=== PATIENT | male | born 1935 ===

== ENCOUNTER → 2022-08-02 13:03 | Outpatient (BNVA) | payer MEDICARE, SELFPAY | PROVIDERS: Visit Provider Internal Medicine | DX: M25.512 Pain in left shoulder (principal); I69.398 Other sequelae of cerebral infarction | CPT/HCPCS: 99202 ==

== ENCOUNTER 2022-10-06 09:23 | Day surgery (SDC) | payer MEDICARE, SELFPAY ==
[2022-10-06 08:23] VITALS: BMI 27.1
[2022-10-06 10:13] VITALS: BP 160/78; PULSE 76; RESP 18; TEMP 36.8; O2SAT 97
--- NOTE | 2022-10-06 11:19 | MHC.SHP ---
Pre-Procedural Eval Section A Date of Service: 10/06/22 The patient is an INPATIENT: No Changes since office visit: Yes Patient answered all questions The History & Physical has been completed within 30 days and I have reviewed it.: No Section B Chief Complaint: Pain in left shoulder Relevant Family History (Specify if Yes): No Relevant Social History: Other (specify) Present Medications: see Short Stay Collaborative assessment Medical History: Significant History (post-stroke shoulder pain) History of Previous Operations: No relevant previous surgery Allergies: Allergies Allergy/AdvReac Type Severity Reaction Status Date / Time baclofen AdvReac Intermediate n/v Verified 08/02/22 13:23 gabapentin AdvReac Intermediate Insomnia Verified 08/02/22 13:23 Review of Systems Sugical H&P ROS: Negative: Constitution, Cardiovascular and Respiratory Exam Surgical H&P Exam: Normal: HEENT, Normal: Heart and Normal: Lungs Plan Diagnosis/Plan: Unchanged I have reviewed the history and physical and performed a pertinent physical examination on my patient. No changes have occurred unless specified. Proceed with left suprascapular temporary nerve stimulator placement. Time Spent With Patient Time: Total time managing care of this patient today ____ minutes.
--- NOTE | 2022-10-06 11:20 | PM.OP ---
Brief Operative Note Date of Service: 10/06/22 Pre-op diagnosis: Post stroke chronic shoulder pain Post-op diagnosis: same Procedure: Temporary left suprascapular nerve stimulator placement Implants: Sprint temporary PNS system Surgeon: Parminder Ramirez MD Anesthesia: local Was an Senior Product Development Scientist used for this Procedure?: No Estimated blood loss (mL): 1 Pathology: none sent Condition: stable Disposition: same day
--- NOTE | 2022-10-06 11:21 | W.PM.OPN ---
Operative Note Operative Note Date of Service: 10/06/22 Narrative: Peripheral Nerve Stimulation Temporary Lead Placement, Ultrasound-Guided, Suprascapular Nerve, Left ? After the risks, benefits and alternatives were discussed with the patient and informed consent was obtained, patient was placed in the sitting position and padded to foster comfort. Appropriate skin and bony landmarks were identified using ultrasound, including the left suprascapular notch. The skin overlying the needle entry site was prepped and draped in sterile fashion. After identifying and marking the intended target along the course of the suprascapular nerve, the skin around the planned entry point and the subcutaneous tissues were injected with local anesthetic. An introducer needle and stimulating probe were assembled, inserted and advanced along the intended course of the suprascapular nerve, taking care to maintain the proper depth of insertion as the introducer was advanced under fluoroscopy guidance. Bony contact was achieved with the scapula and maintained throughout. The introducer needle was delivered to a location in proximity to the nerve. Multiple stimulation parameters were used to deliver stimulation to the suprascapular nerve in concert with stimulating at multiple positions around the nerve. Nerve target acquisition was confirmed noting generation of sensory and mild motor effects (paresthesia, muscle tension, etc) in the shoulder and proximal arm; corresponding to the distribution of the suprascapular nerve. Various electrical parameter combinations were tested, and the lead location was adjusted (physically relocated under image guidance) until the patient indicated shoulder paresthesia and tension overlapping the distribution of the patient?s typical region of pain. The stimulating probe was removed from the introducer and a percutaneous lead was guided through the needle and delivered to a location in similar proximity to the nerve. Final location was verified with electrical stimulation and documented. The introducer needle was removed, and the exposed end of the percutaneous lead was attached to an external stimulator unit. Various electrical parameter combinations were again tested until the patient indicated paresthesia and muscle tension overlapping the distribution of the patient?s typical region of pain. After confirming that lead impedance was in the normal range, the external unit was detached, the needle was removed, and the lead was anchored at the skin. The needle entry site was occluded with dermabond. The lead was threaded into the connector block and electrical continuity and desired patient response was confirmed. The connector block was attached to the external stimulator unit. The site was covered with a sterile occlusive dressing.? A final image was taken to document final placement. The patient was observed for stability of vital signs and comfort.
[2022-10-06 12:10] VITALS: BP 170/84; PULSE 73; RESP 16; TEMP 36.6; O2SAT 98
[2022-10-06 12:25] VITALS: BP 167/79; PULSE 71; RESP 16; TEMP 36.6; O2SAT 97
== END 2022-10-06 12:36 | disposition home or self-care (01) ==
PROVIDERS: Visit Provider Internal Medicine
PROC: (CPT 64555; principal; 2022-10-06 10:40)
DX: I69.398 Other sequelae of cerebral infarction (principal); M25.512 Pain in left shoulder; I10 Essential (primary) hypertension; E11.9 Type 2 diabetes mellitus without complications; Z79.4 Long term (current) use of insulin; Z79.82 Long term (current) use of aspirin; Z79.899 Other long term (current) drug therapy; Z88.8 Allergy status to other drugs, medicaments and biological substances
CPT/HCPCS: 64555; C1778

== ENCOUNTER → 2022-10-06 09:23 | Outpatient (BNV) | payer MEDICARE, SELFPAY | PROVIDERS: Visit Provider Internal Medicine | DX: M25.512 Pain in left shoulder (principal) | CPT/HCPCS: 64555; 76942 ==

== ENCOUNTER 2022-10-11 08:24 | Outpatient (AMB) | payer MEDICARE, SELFPAY ==
--- NOTE | 2022-10-11 08:25 | A.OFFVIS_ITS ---
Intake Vital Signs 10/11/22 08:32 Height 5 ft 8 in Weight 178 lb BMI 27.1 BP 174/82 H Blood Pressure Location Rt brachial Position Sitting Pulse 81 Pulse Source Pulse Oximeter Pulse Oximetry (%) 96 Oxygen Delivery Method Room Air Intake Visit Reasons: s/p left suprascapular Sprint Mint Machine Operator Required: No Accompanied by: Spouse Allergies baclofen Adverse Reaction (Intermediate, Verified 10/11/22 08:33) n/v gabapentin Adverse Reaction (Intermediate, Verified 10/11/22 08:33) Insomnia HPI s/p left suprascapular Sprint HPI Details 87-year-old male presenting today for a status post left suprascapular nerve stimulator. The patient has been experiencing mild pain from the procedure. His shoulder is bothersome and worsens with movements. He states that yesterday his pain was at baseline. He has been doing some physical activity and exercises at home. According to his , he has been more active since the stimulation has been in place. He also reports a change in his mental clarity and improvement in his mood. His device is functional at 50. He noticed a jolting sensation when the device was at 54. He started experiencing pressure, tingling, and buzzing sensat ions when the device was functional at 55 or more. The patient is scheduled for axillary nerve stimulator in about 10 days. Past procedure: 10/06/22: Peripheral Nerve Stimulation Temporary Lead Placement, Ultrasound- Guided, Suprascapular Nerve, Left: Therapy ongoing [facility] Medical History (Updated 08/06/22 @ 10:30 by Parminder Ramirez MD) Diabetes mellitus History of CVA (cerebrovascular accident) Hypertension Review of Systems Const All systems reviewed & are unremarkable except as noted in HPI and below Physical Exam Vital Signs: Last Vital Signs Pulse 81 10/11/22 08:32 BP 174/82 H 10/11/22 08:32 Pulse Ox 96 10/11/22 08:32 Oxygen Delivery Method Room Air 10/11/22 08:32 BMI result Body Mass Index 27.1 General: Appears afebrile. Alert and oriented. Mood and affect appropriate. Follows and participates in conversation appropriately. Respiratory effort is unlabored. Able to transition from sit to stand unassisted. Ambulates with bilaterally normal heel strike and toe off. Site is clean dry and intact. Results Reviewed Results Reviewed: No imaging is available for review. Assessment & Plan Assessment & Plan (1) Left shoulder pain: Comment: Post stroke shoulder pain syndrome Code(s): M25.512 - Pain in left shoulder (2) Sequela, post-stroke: Code(s): I69.30 - Unspecified sequelae of cerebral infarction Plan The dressing was changed today in the office. We increased patient stimulation device levels to 53 with corresponding tingling and pressure sensation in his left shoulder. The plan as of right now is to proceed with left axillary nerve stimulator placement next week to get more complete coverage of the shoulder region. If the patient reports significant improvement in his pain symptoms with the suprascapular nerve stimulator alone during the next week, we can consider deferring the axillary nerve stimulator. Patient is in agreement with the plan. Scribed for Dr. Ramirez by Mart Harrell, medical records library professor, on 10/11/2022. I, Dr. Ramirez, have personally reviewed and agree with the information entered by the scribe. Coding Level of Care Code Est Pt Level 3 (25125) Diagnoses Left shoulder pain M25.512 Sequela, post-stroke I69.30
[2022-10-11 08:32] VITALS: BP 174/82; PULSE 81; O2SAT 96; BMI 27.1
== END 2022-10-11 09:28 | disposition home or self-care (01) ==
PROVIDERS: Visit Provider Internal Medicine
DX: M25.512 Pain in left shoulder (principal); I69.30 Unspecified sequelae of cerebral infarction
CPT/HCPCS: 99213

== ENCOUNTER → 2022-10-11 08:24 | Outpatient (BNVA) | payer MEDICARE, SELFPAY | PROVIDERS: Visit Provider Internal Medicine | DX: M25.512 Pain in left shoulder (principal); I69.30 Unspecified sequelae of cerebral infarction | CPT/HCPCS: 99212 ==

== ENCOUNTER 2022-10-20 10:11 | Day surgery (SDC) | payer MEDICARE, SELFPAY ==
[2022-10-20 10:51] VITALS: BP 150/71; PULSE 88; RESP 18; TEMP 36.3; O2SAT 97; BMI 26.6
[2022-10-20 13:00] VITALS: BP 170/80; PULSE 74; RESP 14; TEMP 36.6; O2SAT 97
[2022-10-20 13:14] VITALS: BP 155/74; PULSE 75; RESP 16; TEMP 36.6; O2SAT 97
--- NOTE | 2022-10-20 16:43 | MHC.SHP ---
Pre-Procedural Eval Section A Date of Service: 10/20/22 The patient is an INPATIENT: No Changes since office visit: Yes Patient answered all questions The History & Physical has been completed within 30 days and I have reviewed it.: No Section B Chief Complaint: Pain in left shoulder Relevant Family History (Specify if Yes): No Relevant Social History: None Present Medications: see Short Stay Collaborative assessment Medical History: Significant History (History of CVA) History of Previous Operations: No relevant previous surgery Allergies: Allergies Allergy/AdvReac Type Severity Reaction Status Date / Time baclofen AdvReac Intermediate n/v Verified 10/11/22 08:33 gabapentin AdvReac Intermediate Insomnia Verified 10/11/22 08:33 Review of Systems Sugical H&P ROS: Negative: Constitution, Cardiovascular and Respiratory Exam Surgical H&P Exam: Normal: HEENT, Normal: Heart and Normal: Lungs Plan Diagnosis/Plan: Unchanged I have reviewed the history and physical and performed a pertinent physical examination on my patient. No changes have occurred unless specified. Time Spent With Patient Time: Total time managing care of this patient today ____ minutes.
--- NOTE | 2022-10-20 16:43 | PM.OP ---
Brief Operative Note Date of Service: 10/20/22 Pre-op diagnosis: Post stroke left shoulder pain Post-op diagnosis: same Procedure: Temporary left axillary nerve stimulator placement Implants: Sprint temporary PNS system Surgeon: Parminder Ramirez MD Anesthesia: local Was an Clamshell Operator used for this Procedure?: No Estimated blood loss (mL): 2 Pathology: none sent Condition: stable Disposition: same day
--- NOTE | 2022-10-20 16:44 | P.OP_ITS ---
Operative Note Operative Note Date of Service: 10/20/22 Narrative: Peripheral Nerve Stimulation Temporary Lead Placement, Ultrasound-Guided, Axillary Nerve, Left ? After the risks, benefits and alternatives were discussed with the patient and informed consent was obtained, patient was placed in the sitting position and padded to foster comfort. Appropriate skin and bony landmarks were identified using ultrasound, including the left humeral quadrangular space. The skin ove rlying the needle entry site was prepped and draped in sterile fashion. After identifying and marking the intended target along the course of the axillary nerve, the skin around the planned entry point and the subcutaneous tissues were injected with local anesthetic. An introducer needle and stimulating probe were assembled, inserted and advanced along the intended course of the axillary nerve, taking care to maintain the proper depth of insertion as the introducer was advanced under ultrasound guidance.The introducer needle was delivered to a location in proximity to the axillary nerve, taking care not to puncture the posterior circumflex artery. Multiple stimulation parameters were used to deliver stimulation to the axillary nerve in concert with stimulating at multiple positions around the nerve. Nerve target acquisition was confirmed noting generation of sensory and mild motor effects (paresthesia, muscle tension, etc) in the shoulder and proximal arm; corresponding to the distribution of the axillary nerve. Various electrical parameter combinations were tested, and the lead location was adjusted (physically relocated under image guidance) until the patient indicated shoulder paresthesia and tension overlapping the distribution of the patient?s typical region of pain. The stimulating probe was removed from the introducer and a percutaneous lead was guided through the needle and delivered to a location in similar proximity to the nerve. Final location was verified with electrical stimulation and documented. The introducer needle was removed, and the exposed end of the percutaneous lead was attached to an external stimulator unit. Various electrical parameter combinations were again tested until the patient indicated paresthesia and muscle tension overlapping the distribution of the patient?s typical region of pain. After confirming that lead impedance was in the normal range, the external unit was detached, the needle was removed, and the lead was anchored at the skin. The needle entry site was occluded with dermabond. The lead was threaded into the connector block and electrical continuity and desired patient response was confirmed. The connector block was attached to the external stimulator unit. The site was covered with a sterile occlusive dressing.? A final image was taken to document final placement. The patient was observed for stability of vital signs and comfort.
== END 2022-10-20 13:33 | disposition home or self-care (01) ==
PROVIDERS: Visit Provider Internal Medicine
PROC: (CPT 64555; principal; 2022-10-20 11:00)
DX: I69.398 Other sequelae of cerebral infarction (principal); M25.512 Pain in left shoulder; I10 Essential (primary) hypertension; E11.9 Type 2 diabetes mellitus without complications; Z79.4 Long term (current) use of insulin; Z79.82 Long term (current) use of aspirin; Z79.899 Other long term (current) drug therapy; Z88.8 Allergy status to other drugs, medicaments and biological substances
CPT/HCPCS: 64555; C1778

== ENCOUNTER → 2022-10-20 10:11 | Outpatient (BNV) | payer MEDICARE, SELFPAY | PROVIDERS: Visit Provider Internal Medicine | DX: M25.512 Pain in left shoulder (principal) | CPT/HCPCS: 64555 ==

== ENCOUNTER 2022-12-03 11:35 | Outpatient (AMB) | payer MEDICARE, SELFPAY ==
[2022-12-03 11:42] VITALS: BP 186/86; PULSE 79; RESP 14; O2SAT 98; BMI 26.6
--- NOTE | 2022-12-03 11:42 | MHC.OFFVIS ---
Intake Vital Signs 12/03/22 11:42 Height 5 ft 8 in Weight 175 lb BMI 26.6 BP 186/86 H Blood Pressure Location Rt brachial Position Sitting Respiration 14 Pulse 79 Pulse Source Pulse Oximeter Pulse Oximetry (%) 98 Oxygen Delivery Method Room Air Intake Visit Reasons: Sprint removal - suprascapular Allergies baclofen Adverse Reaction (Intermediate, Verified 10/11/22 08:33) n/v gabapentin Adverse Reaction (Intermediate, Verified 10/11/22 08:33) Insomnia HPI Sprint removal - suprascapular HPI Details 87-year-old male who presents today to the office for a sprint removal. The patient is overall doing well. He reports an improvement in his mental clarity and emotions since the stimulation therapy was started. 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 The patient has difficulty lying down in the prone position. Past procedures: 10/20/22: Peripheral Nerve Stimulation Temporary Lead Placement, Ultrasound-Guided, Axillary Nerve, Left: Therapy ongoing 10/06/22: Peripheral Nerve Stimulation Temporary Lead Placement, Ultrasound-Guided, Suprascapular Nerve, Left: Mild benefit [facility] Medical History (Updated 08/06/22 @ 10:30 by Parminder Ramirez MD) Diabetes mellitus History of CVA (cerebrovascular accident) Hypertension Review of Systems Const All systems reviewed & are unremarkable except as noted in HPI and below Physical Exam Vital Signs: Last Vital Signs Pulse 79 12/03/22 11:42 Resp 14 12/03/22 11:42 BP 186/86 H 12/03/22 11:42 Pulse Ox 98 12/03/22 11:42 Oxygen Delivery Method Room Air 12/03/22 11:42 BMI result Body Mass Index 26.6 General: Appears afebrile. Alert and oriented. Mood and affect appropriate. Follows and participates in conversation appropriately. Respiratory effort is unlabored. Able to transition from sit to stand unassisted. Ambulates with bilaterally normal heel strike and toe off. Results Reviewed Results Reviewed: No imaging is available for review. Assessment & Plan Assessment & Plan (1) Left shoulder pain: Comment: Post stroke shoulder pain syndrome Code(s): M25.512 - Pain in left shoulder (2) Sequela, post-stroke: Code(s): I69.30 - Unspecified sequelae of cerebral infarction Plan The site was clean, dry, and intact. The suprascapular sprint was removed today in the office. We will plan for left glenohumeral injection under ultrasound guidance to help with his adhesive capsulitis on his next visit for the axillary lead removal. Overall he found the stimulation therapy helpful for pain though is disappointed by the lack of increased ROM. I explained to him that this may be a permanent deficit from his CVA. He is still interested in considering permanent PNS implant given the way he felt during the stimulation trial. Discussed the risks and benefits of the procedure with the patient in detail. All questions were answered. Scribed for Dr. Ramirez by Mart Harrell, rn medical inpatient services, on 12/03/2022. I, Dr. Ramirez, have personally reviewed and agree with the information entered by the scribe. Coding Level of Care Code Est Pt Level 4 (05313) Diagnoses Left shoulder pain M25.512 Sequela, post-stroke I69.30
== END 2022-12-03 12:10 | disposition home or self-care (01) ==
PROVIDERS: Visit Provider Internal Medicine
DX: M25.512 Pain in left shoulder (principal); I69.30 Unspecified sequelae of cerebral infarction
CPT/HCPCS: 99214

== ENCOUNTER → 2022-12-03 11:35 | Outpatient (BNVA) | payer MEDICARE, SELFPAY | PROVIDERS: Visit Provider Internal Medicine | DX: M25.512 Pain in left shoulder (principal); Z86.73 Personal history of transient ischemic attack (TIA), and cerebral infarction without residual deficits | CPT/HCPCS: 99212 ==

== ENCOUNTER 2022-12-17 11:32 | Outpatient (AMB) | payer MEDICARE, SELFPAY ==
--- NOTE | 2022-12-17 11:40 | A.OFFVIS_ITS ---
Intake Intake Visit Reasons: Sprint removal - axillary/Left glenohumeral inj Allergies baclofen Adverse Reaction (Intermediate, Verified 12/17/22 11:41) n/v gabapentin Adverse Reaction (Intermediate, Verified 12/17/22 11:41) Insomnia Medication List - Last Reconciled 12/17/22 by Elaine Garza LPN aspirin (Adult Aspirin Regimen) 81 mg PO DAILY insulin aspart U-100 (Novolog FlexPen U-100 Insulin aspart) 1 sliding scale dose subcut USEASDIRECTD lisinopril 40 mg PO DAILY metoprolol succinate ER 12.5 mg PO DAILY terbinafine HCl 250 mg PO DAILY HPI Sprint removal - axillary/Left glenohumeral inj HPI Details 87-year-old male who presents today to t office for a sprint removal and left glenohumeral injection under ultrasound guidance. Denies any recent cough, cold, infection, fever or other significant changes in medical history since last office visit. Past procedures: 10/20/22: Peripheral Nerve Stimulation T emporary Lead Placement, Ultrasound- Guided, Axillary Nerve, Left: Therapy completed. 10/06/22: Peripheral Nerve Stimulation T emporary Lead Placement, Ultrasound- Guided, Suprascapular Nerve, Left: Mild benefit. [facility] Medical History (Updated 12/23/22 @ 12:46 by Parminder Ramirez MD) Diabetes mellitus History of CVA (cerebrovascular accident) Hypertension Review of Systems Const All systems reviewed & are unremarkable except as noted in HPI and below Physical Exam General: Appears afebrile. Alert and oriented. Mood and affect appropriate. Follows and participates in conversation appropriately. Respiratory effort is unlabored. Able to transition from sit to stand unassisted. Ambulates with bilaterally normal heel strike and toe off. Office Procedures Joint Injection/Drain Joint Injection/Drain Details: Left glenohumeral injection under ultrasound guidance Primary Site: left shoulder Prep: site was prepped using sterile technique Injected: 40 mg of, Kenalog, with 1 mL of (ropivacaine 0.5%) and in the joint Approach Used: anteromedial (under ultrasound) Procedure: The patient tolerated the procedure well Coding Details: An ultrasound image of the injection was taken and stored in the permanent record. - Glenohumeral with ultrasound guidance Procedure code (CPT) selection complete Results Reviewed Results Reviewed: No imaging is available for review. Assessment & Plan Assessment & Plan (1) Left shoulder pain: Comment: Post stroke shoulder pain syndrome Code(s): M25.512 - Pain in left shoulder Qualifiers: Chronicity: chronic Qualified Code(s): M25.512 - Pain in left shoulder; G89.29 - Other chronic pain Plan The site was clean, dry, and intact. The axillary sprint was removed today in the office. He is interested trialing different implantable nerve stimulators, but is hesitant to proceed with a curonix device. He stated that he prefers the Nalu system instead. We had a long discussion going over the details of the technologies and how and intended based external generator would be more comfortable as opposed to a solid disc resting on his back. Patient is status post left glenohumeral injection under ultrasound guidance. Patient tolerated procedure well and was discharged home in stable condition with discharge instructions. All questions were answered. Scribed for Dr. Ramirez by Mart Harrell, manager of medical, on 12/17/2022. I, Dr. Ramirez, have personally reviewed and agree with the information entered by the scribe. Coding Level of Care Code Est Pt Level 4 (99599) Diagnoses Chronic left shoulder pain M25.512; G89.29 Chronicity: chronic CPT Codes Coding - Joint 8: 49734 - Glenohumeral with ultrasound guidance ([id number])
== END 2022-12-17 12:34 | disposition home or self-care (01) ==
PROVIDERS: Visit Provider Internal Medicine
DX: M25.512 Pain in left shoulder (principal); G89.29 Other chronic pain; Z96.82 Presence of neurostimulator
CPT/HCPCS: 20611; 99213

== ENCOUNTER → 2022-12-17 11:32 | Outpatient (BNVA) | payer MEDICARE, SELFPAY | PROVIDERS: Visit Provider Internal Medicine | DX: M25.512 Pain in left shoulder (principal); G89.29 Other chronic pain | CPT/HCPCS: 20611; 99212; J3301 ==

== ENCOUNTER 2023-05-16 08:28 | Outpatient (AMB) | payer MEDICARE, SELFPAY ==
--- NOTE | 2023-05-16 08:28 | A.OFFVIS_ITS ---
Intake Intake Visit Reasons: discuss options Allergies baclofen Adverse Reaction (Intermediate, Verified 12/17/22 11:41) n/v gabapentin Adverse Reaction (Intermediate, Verified 12/17/22 11:41) Insomnia HPI discuss options HPI Details 87-year-old male who presents today via telehealth visit for discussion. The patient reports more than 60% relief following the procedure. The patient reports increasing pain in his left shoulder. He reports about four to five months of good relief following the axillary nerve stimulator explant. Recently, he has developed progressive symptoms that are heavily interfering with his ability to function and participate in daily activities. He is interested in proceeding with a more permanent implant and is specifically interested in the Bioventus Stimrouter. He does not want to pursue the Curonix device. Past procedures: 12/17/22: Left glenohumeral injection un sesar ultrasound guidance: Mild relief 10/20/22: Peripheral Nerve Stimulation T emporary Lead Placement, Ultrasound- Guided, Axillary Nerve, Left: 50-60% relief for 5 months 10/06/22: Peripheral Nerve Stimulation T emporary Lead Placement, Ultrasound- Guided, Suprascapular Nerve, Left: About 50% relief [facility] Medical History (Updated 12/23/22 @ 12:46 by Parminder Ramirez MD) Diabetes mellitus History of CVA (cerebrovascular accident) Hypertension Review of Systems Const All systems reviewed & are unremarkable except as noted in HPI and below Results Reviewed Results Reviewed: No imaging is available for review. Assessment & Plan Assessment & Plan (1) Left shoulder pain: Comment: Post stroke shoulder pain syndrome Code(s): M25.512 - Pain in left shoulder Qualifiers: Chronicity: chronic Qualified Code(s): M25.512 - Pain in left shoulder; G89.29 - Other chronic pain (2) Sequela, post-stroke: Code(s): I69.30 - Unspecified sequelae of cerebral infarction Plan The patient is interested in proceeding with a permanent implant Bioventus Stimrouter. I informed him that it would take us a few weeks to get it on contract with the hospital before we could proceed with the procedure. In the meanwhile, he's interested in pursuing a repeat temporary axillary nerve stimulator to help regain some function and control of his ADLs. Following the temporary stimulator that provided a few months of relief previously, we can plan for a permanent Stimrouter. Scribed for Dr. Ramirez by Mart Harrell, medical reimbursement manager, on 05/16/2023. I, Dr. Ramirez, have personally reviewed and agree with the information entered by the scribe. Telehealth Telehealth Location of provider rendering services: practice address Location of patient: address on file Patient Identification confirmed using: Name, : Yes Telehealth method: voice only Patient verbally consented to treatment: Yes Patient verbally consented to billing insurance company: Yes Patient informed of any privacy concerns related to visit: Yes Minutes spent on Phone/Video with Pt.: 5 Coding Level of Care Code Tele Est Pt Level 4 (44673) Diagnoses Chronic left shoulder pain M25.512; G89.29 Chronicity: chronic Sequela, post-stroke I69.30
== END 2023-05-16 08:29 | disposition home or self-care (01) ==
LOC: HO.PMC 08:28
PROVIDERS: Visit Provider Internal Medicine
DX: M25.512 Pain in left shoulder (principal); G89.29 Other chronic pain; I69.30 Unspecified sequelae of cerebral infarction
CPT/HCPCS: 99441

== ENCOUNTER → 2023-05-16 08:28 | Outpatient (BNVA) | payer MEDICARE, SELFPAY | PROVIDERS: Visit Provider Internal Medicine ==

== ENCOUNTER 2023-05-19 06:20 | Outpatient (REF) | payer MEDICARE, SELFPAY | END 2023-05-19 06:21 | disposition home or self-care (01) | LOC: CF 06:20 | PROVIDERS: Visit Provider Internal Medicine | DX: M25.512 Pain in left shoulder (principal); G89.29 Other chronic pain; I69.30 Unspecified sequelae of cerebral infarction | CPT/HCPCS: 64555; C1778 ==

== ENCOUNTER 2023-05-19 13:34 | Outpatient (AMB) | payer MEDICARE, SELFPAY ==
[2023-05-19 13:45] VITALS: BP 150/80; PULSE 84; RESP 16; O2SAT 98; BMI 26.6
--- NOTE | 2023-05-19 13:45 | A.OFFVIS_ITS ---
Intake Vital Signs 05/19/23 13:45 05/19/23 15:09 Height 5 ft 8 in Weight 175 lb BMI 26.6 BP 150/80 H 160/88 H Blood Pressure Location Lt brachial Rt brachial Position Sitting Sitting Respiration 16 18 Pulse 84 88 Pulse Source Pulse Oximeter Pulse Oximetry (%) 98 96 Oxygen Delivery Method Room Air Room Air Comment Pre-Op Post-Op Intake Visit Reasons: Left axillary Sprint Allergies baclofen Adverse Reaction (Intermediate, Verified 12/17/22 11:41) n/v gabapentin Adverse Reaction (Intermediate, Verified 12/17/22 11:41) Insomnia HPI Left axillary Sprint HPI Details Patient presents for scheduled procedure. Denies any recent cough, cold, infection, fever or other significant changes in medical history since last office visit. [facility] Medical History (Updated 12/23/22 @ 12:46 by Parminder Ramirez MD) Diabetes mellitus History of CVA (cerebrovascular accident) Hypertension Physical Exam Vital Signs: Last Vital Signs Pulse 88 05/19/23 15:09 Resp 18 05/19/23 15:09 BP 160/88 H 05/19/23 15:09 Pulse Ox 96 05/19/23 15:09 Oxygen Delivery Method Room Air 05/19/23 15:09 BMI result Body Mass Index 26.6 Office Procedures Details: Peripheral Nerve Stimulation Temporary Lead Placement, Ultrasound-Guided, Axillary Nerve, Left ? After the risks, benefits and alternatives were discussed with the patient and informed consent was obtained, patient was placed in the sitting position and padded to foster comfort. Appropriate skin and bony landmarks were identified using ultrasound, including the left humeral quadrangular space. The skin overlying the needle entry site was prepped and draped in sterile fashion. After identifying and marking the intended target along the course of the axillary nerve, the skin around the planned entry point and the subcutaneous tissues were injected with local anesthetic. An introducer needle and stimulating probe were assembled, inserted and advanced along the intended course of the axillary nerve, taking care to maintain the proper depth of insertion as the introducer was advanced under ultrasound guidance.The introducer needle was delivered to a location in proximity to the axillary nerve, taking care not to puncture the posterior circumflex artery. Multiple stimulation parameters were used to deliver stimulation to the axillary nerve in concert with stimulating at multiple positions around the nerve. Nerve target acquisition was confirmed noting generation of sensory and mild motor effects (paresthesia, muscle tension, etc) in the shoulder and proximal arm; corresponding to the distribution of the axillary nerve. Various electrical parameter combinations were tested, and the lead location was adjusted (physically relocated under image guidance) until the patient indicated shoulder paresthesia and tension overlapping the distribution of the patient?s typical region of pain. The stimulating probe was removed from the introducer and a percutaneous lead was guided through the needle and delivered to a location in similar proximity to the nerve. Final location was verified with electrical stimulation and documented. The introducer needle was removed, and the exposed end of the perc utaneous lead was attached to an external stimulator unit. Various electrical parameter combinations were again tested until the patient indicated paresthesia and muscle tension overlapping the distribution of the patient?s typical region of pain. After confirming that lead impedance was in the normal range, the external unit was detached, the needle was removed, and the lead was anchored at the skin. The needle entry site was occluded with dermabond. The lead was threaded into the connector block and electrical continuity and desired patient response was confirmed. The connector block was attached to the external stimulator unit. The site was covered with a sterile occlusive dressing.?A final image was taken to document final placement. Postprocedure ultrasound examination did not indicate evidence of internal bleeding or hematoma. The patient was observed for stability of vital signs and comfort. 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 Patient tolerated procedure well and was discharged home in stable condition with discharge instructions. All questions were answered. We will follow-up via telephone or in clinic to assess response to therapy. A follow-up appointment was made during today's visit. Orders: Orders [place] guidance in treatment room Today I69.30 - Unspecified sequelae of cerebral infarction, M25.512 - Pain in left shoulder AMB Sprint PNS Today I69.30 - Unspecified sequelae of cerebral infarction, M25.512 - Pain in left shoulder Coding Level of Care Code Procedure Only Diagnoses Chronic left shoulder pain M25.512; G89.29 Chronicity: chronic Sequela, post-stroke I69.30 CPT Codes Sprint PNS - Sprint PNS Device: Sprint PNS Device ([id number]) Sprint PNS - SPRINT: 34148 - Percutaneous Peripheral Neuroelectrode ([id number]) Implantable Device Implantable Device Implantable Devices Qty [employer] Implant Date Expiration Date Analgesic PENS system 1 SPR [employer] 05/19/23 07/09/24
[2023-05-19 15:09] VITALS: BP 160/88; PULSE 88; RESP 18; O2SAT 96
== END 2023-05-19 15:21 | disposition home or self-care (01) ==
LOC: HO.PMCPRC 13:35
PROVIDERS: Visit Provider Internal Medicine
DX: M25.512 Pain in left shoulder (principal); G89.29 Other chronic pain; I69.30 Unspecified sequelae of cerebral infarction
CPT/HCPCS: 64555

== ENCOUNTER 2023-05-27 10:45 | Outpatient (AMB) | payer MEDICARE, SELFPAY ==
--- NOTE | 2023-05-27 10:51 | MHC.OFFVIS ---
Intake Vital Signs 05/27/23 10:54 Height 5 ft 8 in Weight 175 lb BMI 26.6 BP 182/78 H Blood Pressure Location Rt brachial Position Sitting Respiration 12 Pulse 87 Pulse Source Pulse Oximeter Intake Visit Reasons: s/p Sprint Allergies baclofen Adverse Reaction (Intermediate, Verified 05/27/23 10:55) n/v gabapentin Adverse Reaction (Intermediate, Verified 05/27/23 10:55) Insomnia Medication List - Last Reconciled 05/27/23 by Elaine Garza LPN aspirin (Adult Aspirin Regimen) 81 mg PO DAILY insulin aspart U-100 (Novolog FlexPen U-100 Insulin aspart) 1 sliding scale dose subcut USEASDIRECTD lisinopril 40 mg PO DAILY metoprolol succinate ER 12.5 mg PO DAILY terbinafine HCl 250 mg PO DAILY HPI s/p Sprint HPI Details 87-year-old male who presents today to the office for a status post sprint. He has not noticed any significant changes in his pain post procedure. He endorses appropriate paresthesia sensations from the device. He wants to wait a few more days to assess the response before considering the addition of a suprascapular nerve stimulator device. The dressing was changed today in the office. Past procedures: 05/19/23: Peripheral Nerve Stimulation Temporary Lead Placement, Ultrasound-Guided, Axillary Nerve, Left: No relief yet 12/17/22: Left glenohumeral injection under ultrasound guidance: Mild relief 10/20/22: Peripheral Nerve Stimulation Temporary Lead Placement, Ultrasound-Guided, Axillary Nerve, Left: 50-60% relief for 5 months 10/06/22: Peripheral Nerve Stimulation Temporary Lead Placement, Ultrasound-Guided, Suprascapular Nerve, Left: About 50% relief [facility] Medical History (Updated 12/23/22 @ 12:46 by Parminder Ramirez MD) Diabetes mellitus History of CVA (cerebrovascular accident) Hypertension Review of Systems Const All systems reviewed & are unremarkable except as noted in HPI and below Physical Exam Vital Signs: Last Vital Signs Pulse 87 05/27/23 10:54 Resp 12 05/27/23 10:54 BP 182/78 H 05/27/23 10:54 BMI result Body Mass Index 26.6 General: Appears afebrile. Alert and oriented. Mood and affect appropriate. Follows and participates in conversation appropriately. Respiratory effort is unlabored. Able to transition from sit to stand unassisted. Ambulates with bilaterally normal heel strike and toe off. Lead insertion site is clean dry and intact. No evidence of a hematoma. Results Reviewed Results Reviewed: No imaging is available for review. 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 Since he was a late respond her during the last session, we will wait 1-2 weeks before proceeding with the addition. The dressing was changed today in the office. Scribed for Dr. Ramirez by Mart Harrell, medical policy specialist, on 05/27/2023. I, Dr. Ramirez, have personally reviewed and agree with the information entered by the scribe. Coding Level of Care Code Est Pt Level 3 (04403) Diagnoses Chronic left shoulder pain M25.512; G89.29 Chronicity: chronic Sequela, post-stroke I69.30
[2023-05-27 10:54] VITALS: BP 182/78; PULSE 87; RESP 12; BMI 26.6
== END 2023-05-27 11:11 | disposition home or self-care (01) ==
PROVIDERS: Visit Provider Internal Medicine
DX: M25.512 Pain in left shoulder (principal); G89.29 Other chronic pain; I69.30 Unspecified sequelae of cerebral infarction
CPT/HCPCS: 99024

== ENCOUNTER → 2023-05-27 10:45 | Outpatient (BNVA) | payer MEDICARE, SELFPAY | PROVIDERS: Visit Provider Internal Medicine | DX: G89.29 Other chronic pain (principal); M25.512 Pain in left shoulder; I69.30 Unspecified sequelae of cerebral infarction | CPT/HCPCS: 99212 ==